=== PATIENT | male | born 1985 | race Two or more races ===

== ENCOUNTER 2016-04-12 15:06 | Emergency (ER) | payer MEDICAID ==
[~2016-04-12] VITALS: Ht 162.6 cm; Wt 124.3 kg
[2016-04-12] MEDS ORDERED: ALBUTEROL FS 2.5 MG/3 ML VIAL.NEB NEB ONE (16:30)
[2016-04-12] MEDS ORDERED: predniSONE 20 MG TABLET PO ONE (16:30)
[2016-04-12] MEDS ORDERED: IPRATROPIUM NEB FS 0.5 MG/2.5 ML AMPUL.NEB NEB ONE (16:30)
[2016-04-12] MEDS ORDERED: IPRATROPIUM NEB FS 0.5 MG/2.5 ML AMPUL.NEB ONE (16:46)
[2016-04-12] MEDS ORDERED: ALBUTEROL FS 2.5 MG/3 ML VIAL.NEB ONE (16:46)
[2016-04-12] MEDS ORDERED: predniSONE 20 MG TABLET ONE (17:29)
[2016-04-12 17:30] VITALS: BP 118/65
== END 2016-04-12 17:40 | disposition home or self-care (01) ==
LOC: ER 15:10
DX: J02.9 Acute pharyngitis, unspecified (principal); J45.909 Unspecified asthma, uncomplicated; H92.01 Otalgia, right ear
CPT/HCPCS: 71010; 94640 ×2; 99284; A4606; J7512; Z7610

== ENCOUNTER 2017-10-01 19:09 | Emergency (ER) | payer MEDICAID ==
[~2017-10-01] VITALS: Ht 170.2 cm; Wt 108.9 kg
[2017-10-01 19:09] VITALS: BP 145/89
== END 2017-10-01 19:53 | disposition home or self-care (01) ==
LOC: ER 19:10
DX: H60.91 Unspecified otitis externa, right ear (principal)
CPT/HCPCS: 99283; A4606; Z7610

== ENCOUNTER 2019-03-16 16:57 | Emergency (ER) | payer MEDICAID ==
[~2019-03-16] VITALS: Ht 162.6 cm; Wt 117.9 kg
--- NOTE | 2019-03-16 17:41 | NUR ---
PT [id number]. AMBULATORY. BIBFAMILY. C/O COUGH -FEVER. X3 DAYS. NO ACUTE DISTRESS NOTED. VSS. PLACED ON MONITOR AND PULSE OX. AWAITING MD FOR EVAL.
[2019-03-16] MEDS ORDERED: predniSONE 20 MG TABLET ONE (18:17)
[2019-03-16] MEDS: predniSONE 20 MG TABLET PO ONE (18:19)
--- NOTE | 2019-03-16 18:43 | NUR ---
CALLED RT FOR BREATHING TREATMENT
[2019-03-16] MEDS: IPRATROPIUM NEB FS 0.5 MG/2.5 ML AMPUL.NEB NEB ONE (18:46)
[2019-03-16] MEDS: ALBUTEROL FS 2.5 MG/3 ML VIAL.NEB NEB ONE (18:46)
[2019-03-16] MEDS ORDERED: IPRATROPIUM NEB FS 0.5 MG/2.5 ML AMPUL.NEB ONE (18:58)
[2019-03-16] MEDS ORDERED: ALBUTEROL FS 2.5 MG/3 ML VIAL.NEB ONE (18:58)
--- NOTE | 2019-03-16 19:22 | NUR ---
PT RECIEVED BREATHIGN TREATMENT. BREATHING WELL. VSS. NO ACUTE DISTRESS. Patient discharged to home in stable condition. Written and verbal after care instructions given. Patient verbalizes understanding of instruction and RX. VSS. Ambulated with steady gait.
[2019-03-16 19:23] VITALS: BP 132/74
== END 2019-03-16 19:38 | disposition home or self-care (01) ==
LOC: ER 16:57
DX: J06.9 Acute upper respiratory infection, unspecified (principal); R06.2 Wheezing; E66.9 Obesity, unspecified; Z68.41 Body mass index [BMI] 40.0-44.9, adult
CPT/HCPCS: 94640; 99283; J7512